=== PATIENT | female | born 1975 | race Caucasian/White ===

== ENCOUNTER 2017-09-04 14:18 | Emergency (ER) | payer OTHER ==
[~2017-09-04] VITALS: Wt 81.6 kg
[~2017-09-04 14:18] MED LIST: NKHM; PERCOCET 325 MG1 TA2 PO
[2017-09-04 14:48] LABS: HEMATOCRIT 32.9 % (37.0-47.0); HEMOGLOBIN 11.3 g/dl (12.0-16.0); MEAN CELL VOLUME 93.7 fl (81.0-99.0); MEAN CORPUSCULAR HGB 32.2 pg (27.0-31.0); MEAN CORPUSCULAR HGB CONC 34.3 g/dl (33.0-37.0); PLATELET COUNT AUTOMATED 224 10*3/uL (130-400); RED BLOOD COUNT 3.51 10*6/uL (4.10-5.10); RED CELL DISTRI WIDTH 14.2 % (0-14.5)
[2017-09-04 15:05] LABS: ACT PARTIAL THROMBO TIME 25.3 SECONDS (20.8-31.5)
[2017-09-04 15:06] LABS: ALBUMIN 3.8 gm/dl (3.1-4.5); ALKALINE PHOSPHATASE 78 U/L (45-117); BUN 10 mg/dl (7-24); CHLORIDE 105 mmol/L (98-107); CREATININE 1.02 mg/dL (0.55-1.02); LIPASE 127 U/L (73-393); POTASSIUM 3.8 mmol/L (3.5-5.1); SGOT/AST 66 IU/L (3-35); SGPT/ALT 82 U/L (12-78); SODIUM 140 mmol/L (136-145); TOTAL PROTEIN 7.4 gm/dL (6.4-8.2)
[2017-09-04 15:26] LABS: PLATELET SUFFICIENCY NORMAL (NORMAL); POLYCHROMASIA SLIGHT; TOTAL CELLS COUNTED 100 #CELLS
[2017-09-04 15:28] LABS: OVALOCYTES FEW
[2017-09-04 17:36] LABS: BILIRUBIN NEGATIVE (NEGATIVE); BLOOD NEGATIVE (NEGATIVE); CLARITY CLEAR (CLEAR); COLOR YELLOW (YELLOW); GLUCOSE NEGATIVE (NEGATIVE); KETONE NEGATIVE (NEGATIVE); LEUKO ESTERASE NEGATIVE (NEGATIVE); NITRITE NEGATIVE (NEGATIVE); PH 5.5 (5.0-9.0); SPECIFIC GRAVITY <= 1.005 (1.005-1.030); UROBILINOGEN 0.2 E.U./dl (0.2-1.0)
[2017-09-04 17:46] LABS: EPITHELIAL CELLS 0-2; WBC 0-2 wbc/hpf (0-5)
== END 2017-09-04 19:40 | disposition short-term general hospital (02) ==
LOC: ED 14:18
PROVIDERS: Nurse Practitioner Family
DX: C50.912 Malignant neoplasm of unspecified site of left female breast (principal); D70.9 Neutropenia, unspecified; R50.81 Fever presenting with conditions classified elsewhere; Z88.0 Allergy status to penicillin

== ENCOUNTER 2018-02-01 10:18 | Emergency (ER) | payer OTHER ==
[~2018-02-01] VITALS: Wt 81.6 kg
[2018-02-01] MEDS ORDERED: ZITHROMAX250 MG PO (10:29)
== END 2018-02-01 10:37 | disposition home or self-care (01) ==
LOC: ED 10:18
DX: J06.9 Acute upper respiratory infection, unspecified (principal); Z88.0 Allergy status to penicillin